=== PATIENT | female | born 1965 | race African-American/Black ===

== ENCOUNTER 2018-05-27 09:44 | Inpatient (IN) | payer OTHER ==
[~2018-05-27] VITALS: Ht 180.3 cm; Wt 124.4 kg
[~2018-05-27 09:44] MED LIST: CIPRO500 MG PO; FLAGYL500 MG PO; PERCOCET 5/31 TABLET PO; ULTRAM50 MG PO
[2018-05-27 10:54] LABS: HEMATOCRIT 35.7 % (36.0-46.0); HEMOGLOBIN 11.6 G/DL (11.9-15.5); MCH 26.8 PG (29.0-34.0); MCHC 32.5 G/DL (30.0-36.0); MCV 82.4 FL (83-99); PLATELET COUNT 375 K/uL (156-360); RBC DIS.WIDTH-CV 13.3 % (11.8-14.6); RBC DIS.WIDTH-SD 40.4 % (39-53); RED BLOOD COUNT 4.33 M/uL (3.80-5.20); WHITE BLOOD COUNT 10.1 K/uL (4.1-10.2)
[2018-05-27 11:07] LABS: CHLORIDE 100 mEq/L (99-109); POTASSIUM 4.1 mEq/L (3.7-5.4); SODIUM 135 mEq/L (136-147)
[2018-05-27 11:09] LABS: GLUCOSE 88 mg/dL (70-99); TOTAL PROTEIN 8.2 g/dL (6.4-8.3)
[2018-05-27 11:11] LABS: TOTAL BILIRUBIN 0.6 mg/dL (0.0-1.0)
[2018-05-27 11:12] LABS: ALKALINE PHOSPHATASE 77 IU/L (3-129)
[2018-05-27 11:13] LABS: CREATININE 0.8 mg/dL (0.6-1.3); GFR ESTIMATE (CALCULATED) > 59 mL/min/
[2018-05-27 11:14] LABS: AST (GOT) 15 IU/L (2-34); UREA NITROGEN (BUN) 13 mg/dL (9-23)
[2018-05-27 11:16] LABS: ALT (GPT) 8 IU/L (3-49)
[2018-05-27 11:22] LABS: QUANTITATIVE HCG < 4.0 MIU/ML
[2018-05-27 13:04] LABS: APPEARANCE CLEAR ((CLEAR)); BILIRUBIN NEGATIVE; BLOOD SMALL; COLOR YELLOW ((YELLOW)); GLUCOSE (STRIP) NEGATIVE; KETONES NEGATIVE; LEUKOCYTES NEGATIVE; NITRITE POSITIVE; PROTEIN (STRIP) NEGATIVE; UROBILINOGEN 0.2 MG/DL (0.2-1.0)
[2018-05-27 13:10] LABS: BACTERIA RARE /HPF; EPITHELIAL CELLS RARE /HPF; MUCUS TRACE /LPF; RED BLOOD CELLS 0-5 /HPF (0-5); UCUL ADDED? NO; WHITE BLOOD CELLS 0-5 /HPF (0-5)
[2018-05-27] MEDS ORDERED: ALEVE220 MG PO (15:20)
[2018-05-27] MEDS ORDERED: ADVIL200 MG PO (15:21)
[2018-05-27] MEDS ORDERED: ULTRAM50 MG PO (15:21)
[2018-05-27 17:17] VITALS: BP 134/73
[2018-05-27 21:22] VITALS: BP 110/56
[2018-05-27 23:58] VITALS: BP 111/56
[2018-05-28 05:09] VITALS: BP 117/60
[2018-05-28 06:34] LABS: HEMATOCRIT 32.5 % (36.0-46.0); HEMOGLOBIN 10.3 G/DL (11.9-15.5); MCH 26.1 PG (29.0-34.0); MCHC 31.7 G/DL (30.0-36.0); MCV 82.5 FL (83-99); PLATELET COUNT 362 K/uL (156-360); RBC DIS.WIDTH-CV 13.4 % (11.8-14.6); RBC DIS.WIDTH-SD 40.8 % (39-53); RED BLOOD COUNT 3.94 M/uL (3.80-5.20); WHITE BLOOD COUNT 6.1 K/uL (4.1-10.2)
[2018-05-28 06:52] LABS: ALBUMIN 3.3 G/DL (3.2-4.8); ALKALINE PHOSPHATASE 53 IU/L (3-129); ALT (GPT) 6 IU/L (3-49); AST (GOT) 10 IU/L (2-34); CHLORIDE 102 MEQ/L (99-109); CREATININE 0.7 MG/DL (0.6-1.3); GFR ESTIMATE (CALCULATED) > 59 mL/min/; GLUCOSE 78 mg/dL (70-99); PHOSPHORUS 4.3 mg/dL (2.5-4.9); POTASSIUM 4.1 MEQ/L (3.7-5.4); SODIUM 136 MEQ/L (136-147); TOTAL BILIRUBIN 0.7 MG/DL (0.0-1.0); TOTAL PROTEIN 6.2 G/DL (6.4-8.3); UREA NITROGEN (BUN) 8 mg/dL (9-23)
[2018-05-28 07:18] VITALS: BP 107/55
[2018-05-28 11:37] VITALS: BP 124/71
[2018-05-28 16:26] LABS: RETIC HGB EQUIVALENT 25.6 (28-36)
[2018-05-28 16:41] VITALS: BP 114/57
[2018-05-28 16:51] LABS: IRON 36 MCG/DL (35-150); TRANSFERRIN (TIBC) 224.6 mg/dL (215-380); TRANSFERRIN SATUR. 16 % (20-55)
[2018-05-28 18:43] LABS: FOLIC ACID (FOLATE) 13.3 NG/ML (5.0-22.0)
[2018-05-28 18:50] VITALS: BP 120/80
[2018-05-28 19:07] LABS: FERRITIN 92 NG/ML (10-291)
[2018-05-28 23:07] VITALS: BP 98/54
[2018-05-29 03:38] VITALS: BP 130/62
[2018-05-29 06:52] LABS: HEMATOCRIT 32.5 % (36.0-46.0); HEMOGLOBIN 10.3 G/DL (11.9-15.5); MCH 26.3 PG (29.0-34.0); MCHC 31.7 G/DL (30.0-36.0); MCV 82.9 FL (83-99); PLATELET COUNT 352 K/uL (156-360); RBC DIS.WIDTH-CV 13.3 % (11.8-14.6); RBC DIS.WIDTH-SD 40.4 % (39-53); RED BLOOD COUNT 3.92 M/uL (3.80-5.20); WHITE BLOOD COUNT 4.1 K/uL (4.1-10.2)
[2018-05-29 07:14] LABS: CHLORIDE 105 MEQ/L (99-109); CREATININE 0.8 MG/DL (0.6-1.3); GFR ESTIMATE (CALCULATED) > 59 mL/min/; GLUCOSE 95 mg/dL (70-99); MAGNESIUM 1.9 mg/dl (1.3-2.7); POTASSIUM 4.2 MEQ/L (3.7-5.4); SODIUM 140 MEQ/L (136-147); UREA NITROGEN (BUN) 7 mg/dL (9-23)
[2018-05-29 08:19] VITALS: BP 134/83
[2018-05-29 11:22] VITALS: BP 132/75
[2018-05-29 14:35] VITALS: BP 124/73
[2018-05-29 19:21] VITALS: BP 119/66
[2018-05-29 22:56] VITALS: BP 111/54
[2018-05-30 03:29] VITALS: BP 120/61
[2018-05-30 07:55] VITALS: BP 133/72
[2018-05-30 08:51] LABS: BASOPHIL (%) 0.9 % (0-1); EOSINOPHIL (%) 4.1 % (0-5); EOSINOPHIL COUNT 0.1 K/uL (0-0.3); HEMATOCRIT 34.2 % (36.0-46.0); HEMOGLOBIN 10.8 G/DL (11.9-15.5); IMMATURE GRANULOCYTE (%) 0.3 % (0.0-0.7); LYMPHOCYTE (%) 39.1 % (15-42); LYMPHOCYTE COUNT 1.3 K/uL (1.0-2.8); MCH 26.1 PG (29.0-34.0); MCHC 31.6 G/DL (30.0-36.0); MCV 82.6 FL (83-99); MONOCYTE (%) 15.4 % (3-12); MONOCYTE COUNT 0.5 K/uL (0-0.8); NEUTROPHIL (%) 40.2 % (45-76); NEUTROPHIL COUNT 1.4 K/uL (1.8-6.4); PLATELET COUNT 371 K/uL (156-360); RBC DIS.WIDTH-CV 13.2 % (11.8-14.6); RBC DIS.WIDTH-SD 40.2 % (39-53); RED BLOOD COUNT 4.14 M/uL (3.80-5.20); WHITE BLOOD COUNT 3.4 K/uL (4.1-10.2)
[2018-05-30] MEDS ORDERED: CIPRO500 MG PO (11:13)
[2018-05-30] MEDS ORDERED: FOLBIC RF TABL1 EACH PO (11:14)
== END 2018-05-30 12:29 | disposition home or self-care (01) | DRG 378 ==
LOC: EME 09:44 → EDOF 14:51 → 5EAST 14:51 → ENRESERV 14:52 → 5EAST 16:47
PROVIDERS: Internal Medicine; Physician Assistant
DX: K57.21 Diverticulitis of large intestine with perforation and abscess with bleeding (principal); N39.0 Urinary tract infection, site not specified; B96.20 Unspecified Escherichia coli [E. coli] as the cause of diseases classified elsewhere; D50.0 Iron deficiency anemia secondary to blood loss (chronic); E53.8 Deficiency of other specified B group vitamins; E66.9 Obesity, unspecified; Z68.38 Body mass index [BMI] 38.0-38.9, adult
CPT/HCPCS: 74177; 80048; 80053; 81003; 82272; 82607; 82728; 82746; 83540; 83735; 84100; 84466; 84702; 85025; 85027; 85046; 87077; 87086; 87186; 99281; 99285; J1650; J2543; J3420; J3480; J7030; J7042; J7050

== ENCOUNTER 2018-07-05 05:10 | Emergency (ER) | payer OTHER ==
[~2018-07-05] VITALS: Ht 180.3 cm; Wt 121.1 kg
[~2018-07-05 05:10] MED LIST changes: +ADVIL200 MG PO; +ALEVE220 MG PO; +FOLBIC RF TABL1 EACH PO
[2018-07-05] MEDS ORDERED: PREDNISONE50 MG PO (06:54)
[2018-07-05] MEDS ORDERED: TOBREX5 ML BOTH EYES (06:54)
[2018-07-05] MEDS ORDERED: AUGMENTIN875 MG PO (06:54)
[2018-07-05 07:25] VITALS: BP 115/90
== END 2018-07-05 07:25 | disposition home or self-care (01) ==
LOC: EME 05:10
DX: H10.9 Unspecified conjunctivitis (principal); L03.811 Cellulitis of head [any part, except face]; T49.4X5A Adverse effect of keratolytics, keratoplastics, and other hair treatment drugs and preparations, initial encounter; Z88.1 Allergy status to other antibiotic agents
CPT/HCPCS: 99281; 99284; J7512

== ENCOUNTER 2018-07-06 01:32 | Emergency (ER) | payer OTHER ==
[~2018-07-06] VITALS: Ht 180.3 cm; Wt 121.4 kg
[~2018-07-06 01:32] MED LIST changes: +AUGMENTIN875 MG PO; +PREDNISONE50 MG PO; +TOBREX5 ML BOTH EYES
[2018-07-06 02:37] LABS: HEMOGLOBIN 12.4 G/DL (11.9-15.5); MCH 26.6 PG (29.0-34.0); MCHC 32.6 G/DL (30.0-36.0); MCV 81.5 FL (83-99); PLATELET COUNT 386 K/uL (156-360); RBC DIS.WIDTH-CV 13.7 % (11.8-14.6); RBC DIS.WIDTH-SD 40.6 % (39-53); RED BLOOD COUNT 4.66 M/uL (3.80-5.20); WHITE BLOOD COUNT 9.7 K/uL (4.1-10.2)
[2018-07-06 02:44] LABS: CHLORIDE 107 mEq/L (99-109); POTASSIUM 3.9 mEq/L (3.7-5.4); SODIUM 137 mEq/L (136-147)
[2018-07-06 02:46] LABS: GLUCOSE 119 mg/dL (70-99)
[2018-07-06 02:50] LABS: CREATININE 0.8 mg/dL (0.6-1.3); GFR ESTIMATE (CALCULATED) > 59 mL/min/; UREA NITROGEN (BUN) 17 mg/dL (9-23)
[2018-07-06 04:58] VITALS: BP 113/87
== END 2018-07-06 04:54 | disposition home or self-care (01) ==
LOC: EME 01:32
PROVIDERS: Emergency Medicine
DX: H57.8 Other specified disorders of eye and adnexa (principal); T49.4X Poisoning by, adverse effect of and underdosing of keratolytics, keratoplastics, and other hair treatment drugs and preparations; Z88.1 Allergy status to other antibiotic agents
CPT/HCPCS: 80048; 85027; 99281; 99284; J1200; J2930